=== PATIENT | male | born 1960 | race Two or more races ===

== ENCOUNTER 2020-10-24 09:44 | Emergency (ER) | payer SELFPAY ==
[~2020-10-24] VITALS: Ht 157.5 cm; Wt 77.1 kg
[~2020-10-24 09:44] MED LIST: AMOX500T3; IBUP800T41
[2020-10-24] MEDS ORDERED: cloNIDine HCL 0.1 MG TAB ONE (09:55)
[2020-10-24] MEDS ORDERED: cloNIDine HCL 0.1 MG TAB PO ONE (10:00)
[2020-10-24] MEDS ORDERED: TETANUS-DIPTH-ACEL PERTUSSIS 0.5ML SYR Tdap IM ONE (12:15)
[2020-10-24] MEDS ORDERED: cefTRIAXone W LIDOCAINE 1 GM IM IM ONE (12:15)
[2020-10-24] MEDS ORDERED: cefTRIAXone SOD 1,000 MG VL ONE (12:38)
[2020-10-24] MEDS ORDERED: HYDROcodone-ACET 10/325MG TAB PO ONE (13:00)
[2020-10-24] MEDS ORDERED: amLODIPine BESYLATE 5 MG TAB PO ONE (13:00)
[2020-10-24] MEDS ORDERED: LORazepam 0.5 MG TAB PO ONE (14:15)
[2020-10-24 14:19] VITALS: BP 170/107
== END 2020-10-24 14:30 | disposition home or self-care (01) ==
LOC: ER 09:44
DX: S61.210A Laceration without foreign body of right index finger without damage to nail, initial encounter (principal); X58.XXXA Exposure to other specified factors, initial encounter; Y93.89 Activity, other specified; Y92.89 Other specified places as the place of occurrence of the external cause; Y99.8 Other external cause status
CPT/HCPCS: 73140; 90471; 90715; 96372; 99284; J0696